=== PATIENT | female | born 1950 | race Caucasian/White ===

== ENCOUNTER → 2019-01-14 | Outpatient (CLI) | payer MEDICARE ==
[~2019-01-14] MED LIST: AMLO-150 PO; ASCO-96 PO; ASPI-691 PO; CALCIUM CIT PO; CHOL500015 PO; ECHI350C PO; GLIM4TAB2 PO; INSU100V8 SQ; LISI-167 PO; LOVA20TA2 PO; MAG PO; MELA5TAB19 PO; METF500T9 PO; MULT-516 PO; NAPR220T66 PO; OMEPRAZOLE PO; PIOG30TA4 PO; TIZA4TAB PO; VALE500C PO; [UNRECOGNIZED DRUG - OTHER] PO; [UNRECOGNIZED DRUG - OTHER] PO; iron PO
[2019-01-14 15:07] LABS: BASOPHILS # (AUTO) 0.03 x10^3/uL (0-0.1); BASOPHILS % (AUTO) 1 % (0-1); EOSINOPHILS # (AUTO) 0.11 x10^3/uL (0-0.4); EOSINOPHILS % (AUTO) 2 % (1-7); LYMPHOCYTES # (AUTO) 0.95 x10^3/uL (1-3.4); LYMPHOCYTES % (AUTO) 14 % (22-44); MD NO; MEAN CORPUSCULAR HEMOGLOBIN 28.3 pg (27.0-34.8); MEAN CORPUSCULAR HGB CONC 31.9 g/dL (32.4-35.8); MEAN CORPUSCULAR VOLUME 88.6 fL (80-100); MEAN PLATELET VOLUME 7.5 fL (7.4-10.4); MONOCYTES # (AUTO) 0.65 x10^3/uL (0.2-0.8); MONOCYTES % (AUTO) 10 % (2-9); NEUTROPHILS # (AUTO) 4.94 x10^3/uL (1.8-6.8); NEUTROPHILS % (AUTO) 74 % (42-75); PLATELET COUNT 355 x10^3/uL (130-400); RED BLOOD COUNT 4.41 x10^6/uL (3.82-5.3)
[2019-01-14 15:16] LABS: ALANINE AMINOTRANSFERASE 45 U/L (12-78); ALBUMIN 3.8 g/dL (3.4-5.0); ANION GAP 4 mmol/L (5-15); CALCIUM 10.7 mg/dL (8.5-10.1); CHLORIDE 109 mmol/L (98-107); CREATININE 0.87 mg/dL (0.55-1.02)
[2019-01-14 15:19] LABS: ALKALINE PHOSPHATASE 98 U/L (45-117); BILIRUBIN,TOTAL 0.3 mg/dL (0.2-1.0); TOTAL PROTEIN 7.5 g/dL (6.4-8.2)
[2019-01-14 15:21] LABS: PROTHROMBIN TIME 10.5 Seconds (9.6-11.5)
[2019-01-14 15:30] LABS: HEMOGLOBIN A1C 6.4 % (4.2-6.3)
== END | disposition home or self-care (01) ==
LOC: STAR 14:01
PROVIDERS: ATTEND Orthopaedic Surgery
DX: Z01.818 Encounter for other preprocedural examination (principal); M17.11 Unilateral primary osteoarthritis, right knee
CPT/HCPCS: 36415; 80053; 83036; 85025; 85610; 85730; 87081; 87806; 93005; G0475

== ENCOUNTER 2019-01-24 06:17 | Observation (INO) | payer MEDICARE ==
[~2019-01-24] VITALS: Ht 177.8 cm; Wt 117.4 kg
[2019-01-25 14:55] VITALS: BP 112/69
== END 2019-01-25 16:48 | disposition home or self-care (01) ==
LOC: OUT 06:17 → 4NOR 11:53 → OUT 22:52
PROVIDERS: ADMIT Orthopaedic Surgery; ATTEND Orthopaedic Surgery
DX: M17.11 Unilateral primary osteoarthritis, right knee (principal); Z91.048 Other nonmedicinal substance allergy status; Z79.899 Other long term (current) drug therapy
CPT/HCPCS: 27447; 36415; 73560; 82962; 85014; 85018; 94640; 96365; 96366; 96372; 96375; 96376; 97110; 97116; 97150; 97161; C1713; C1776; G0378; J0171; J0330; J0690; J1100; J1815; J1885; J2250; J2405; J2704; J2795; J3010; J3480; J7120; J7613

== ENCOUNTER 2019-02-02 10:35 | Inpatient (IN) | payer MEDICARE ==
[~2019-02-02] VITALS: Ht 177.8 cm; Wt 112.7 kg
[2019-02-14 13:34] VITALS: BP 114/66
== END 2019-02-14 14:42 | disposition hospice, home (50) | DRG 166 ==
LOC: ED 11:37 → EDIP 13:19 → 5SO 14:26 → 3NW 02-05 15:33
PROVIDERS: ADMIT Internal Medicine; ATTEND Internal Medicine
PROC: 0W9B3ZZ Drainage of Left Pleural Cavity, Percutaneous Approach (ICD-10-PCS; 2019-02-02)
PROC: 07B73ZX Excision of Thorax Lymphatic, Percutaneous Approach, Diagnostic (ICD-10-PCS; principal; 2019-02-10)
PROC: 0BJ08ZZ Inspection of Tracheobronchial Tree, Via Natural or Artificial Opening Endoscopic (ICD-10-PCS; 2019-02-10)
PROC: 0W9B30Z Drainage of Left Pleural Cavity with Drainage Device, Percutaneous Approach (ICD-10-PCS; 2019-02-11)
PROC: BB4BZZZ Ultrasonography of Pleura (ICD-10-PCS; 2019-02-11)
DX: C34.90 Malignant neoplasm of unspecified part of unspecified bronchus or lung (principal); I26.99 Other pulmonary embolism without acute cor pulmonale; J96.01 Acute respiratory failure with hypoxia; I50.31 Acute diastolic (congestive) heart failure; J91.0 Malignant pleural effusion; C79.31 Secondary malignant neoplasm of brain; C78.2 Secondary malignant neoplasm of pleura; C79.51 Secondary malignant neoplasm of bone; D68.69 Other thrombophilia; I50.9 Heart failure, unspecified; Z91.048 Other nonmedicinal substance allergy status; D35.02 Benign neoplasm of left adrenal gland; D64.9 Anemia, unspecified; E11.42 Type 2 diabetes mellitus with diabetic polyneuropathy; E11.649 Type 2 diabetes mellitus with hypoglycemia without coma; E78.5 Hyperlipidemia, unspecified; E83.52 Hypercalcemia; G89.29 Other chronic pain; M54.9 Dorsalgia, unspecified; I08.1 Rheumatic disorders of both mitral and tricuspid valves; I11.0 Hypertensive heart disease with heart failure; I27.20 Pulmonary hypertension, unspecified; K21.9 Gastro-esophageal reflux disease without esophagitis; M19.90 Unspecified osteoarthritis, unspecified site; N28.1 Cyst of kidney, acquired; Z79.4 Long term (current) use of insulin; Z79.82 Long term (current) use of aspirin; Z80.0 Family history of malignant neoplasm of digestive organs; Z80.1 Family history of malignant neoplasm of trachea, bronchus and lung; Z80.3 Family history of malignant neoplasm of breast; Z80.8 Family history of malignant neoplasm of other organs or systems; Z83.3 Family history of diabetes mellitus; Z86.73 Personal history of transient ischemic attack (TIA), and cerebral infarction without residual deficits; Z96.651 Presence of right artificial knee joint
CPT/HCPCS: 31628; 32550; 32555; 36415; 70553; 71045; 71275; 72131; 74176; 76942; 80048; 80053; 82150; 82306; 82330; 82945; 82962; 83615; 83880; 83970; 83986; 84100; 84157; 84443; 84484; 85025; 85379; 85520; 85610; 85730; 87070; 87205; 88112; 88172; 88173; 88177; 88305; 88341; 88342; 89051; 93005; 93306; 93970; 94640; 96374; 99156; 99157; 99285; A9585; G0378; J0690; J0696; J1170; J1644; J1940; J2250; J2704; J3010; Q9967; C1729; J1815; J2370